=== PATIENT | male | born 1980 ===

== ENCOUNTER 2016-06-19 15:33 | Emergency (ER) | payer SELFPAY ==
[~2016-06-19] VITALS: Ht 180.3 cm; Wt 75.9 kg
[2016-06-19 16:03] VITALS: BP 167/83
== END 2016-06-19 17:40 | disposition left against medical advice (07) ==
LOC: EMS 15:35
DX: Z53.21 Procedure and treatment not carried out due to patient leaving prior to being seen by health care provider (principal)